=== PATIENT | female | born 1950 | race Caucasian/White ===

== ENCOUNTER 2017-04-05 19:05 | Inpatient (IN) | payer MEDICARE ==
[~2017-04-05 19:05] MED LIST: ALBUTEROL2.5 MG/3 M INH; ASPIRIN EC81 MG PO; AZILECT1 M1 PO; CARBIDOPA-LEVO E1 EA PO; CARBIDOPA-LEVO1 EA17 PO; CLONAZEPAM0.5 M2 PO; COMTAN200 M1 PO; CYCLOBENZAPRINE10 M1 PO; DEPAKOTE ER250 M1 PO; DEPAKOTE ER500 M1 PO; DULCOLAX10 MG PR; ELIQUIS2.5 M1 PO; ELIQUIS5 M1 PO; FEOSOL325 M1 PO; FLONASE ALLERG9.9 ML; GEODON40 M1 PO; KLONOPIN0.5 M1 PO; LEVOTHYROXINE150 MC3 PO; LEXAPRO10 M2 PO; LISINOPRIL20 M1 PO; METOPROLOL TART25 M1 PO; NEURONTIN300 M1 PO; NORCO 5-325 TA1 EACH PO; NYSTATIN1 EAC2 TOP; OMEPRAZOLE20 M3 PO; OXYBUTYNIN CHLO15 M1 PO; OXYCODONE HCL5 M1 PO; PROAIR HFA8.5 GM PO; SENNA PLUS TAB1 EAC1 PO; SYMBICORT 160-1 PUFF INH; TYLENOL325 M2 PO; ULTRAM50 M1 PO; VESICARE5 M1 PO; VITAMIN D250000 UNI1 PO; [UNRECOGNIZED DRUG - REMARK] PO
[2017-04-05 20:09] LABS: URINE BILIRUBIN NEGATIVE (NEG); URINE BLOOD SMALL (NEG); URINE GLUCOSE (UA) NEGATIVE (NEG); URINE KETONE SMALL (NEG); URINE LEUKOCYTE ESTERASE POSITIVE (NEG); URINE NITRITE NEGATIVE (NEG); URINE PROTEIN NEGATIVE (NEG); URINE SPECIFIC GRAVITY 1.015 (1.003-1.030)
[2017-04-05 20:10] LABS: URINE APPEARANCE CLEAR; URINE COLOR YELLOW
[2017-04-05 20:19] LABS: URINE BACTERIA 1+; URINE MUCUS 1+
[2017-04-05 20:38] LABS: ABG CO2 ARTERIAL 28 mmol/L (21-27); ARTERIAL BLD GAS O2 SATURATION 97 % (95-98); ARTERIAL BLOOD GAS PCO2 44 mmHg (32-45); ARTERIAL PO2 96 mmHg (70-100); BICARBONATE 27 mmol/L (21-28); BLOOD GAS BASE EXCESS 2 mM/L (-/+3)
[2017-04-05 20:42] LABS: BASO % 0.2 % (0-2); EOSINOPHIL ABSOLUTE COUNT 0.1 tho/cmm (0.0-0.7); HCT-HEMATOCRIT 33.9 % (34.0-49.0); HGB-HEMOGLOBIN 11.2 gm/dl (12.0-15.5); LYMPH % 40.4 % (20-45); LYMPH ABSOLUTE COUNT 2.4 tho/cmm (0.8-4.5); MCH (MEAN CORPUSCULAR HGB) 32.6 pg (28.0-32.0); MCV (MEAN CELL VOLUME) 98.5 fl (82.0-96.0); MEAN PLATELET VOLUME 12.6 cmc (9.4-12.4); MONO % 13.5 % (0-12); MONOCYTE ABSOLUTE COUNT 0.8 tho/cmm (0.0-1.2); NEUTROPHIL ABSOLUTE COUNT 2.6 tho/cmm (1.6-8.0); NEUTROPHIL-AUTOMATED 2.6 tho/cmm (1.6-8.0); NEUTROPHILS % 44.9 % (40-80); PLATELET COUNT 99 tho/cmm (150-450); RED BLOOD COUNT 3.44 mil/cmm (4.00-5.20); RED CELL DISTRIBUTION WIDTH 14.1 % (12.4-16.4); WHITE BLOOD COUNT 5.9 tho/cmm (4.0-10.0)
[2017-04-05 20:58] LABS: ALB/GLOB RATIO 0.8 (0.8-2.0); ALBUMIN 3.1 g/dl (3.5-5.0); ALKALINE PHOSPHATASE 90 U/L (33-138); ALT/SGPT 10 U/L (12-78); ANION GAP 13 mmol/L (0-20); AST/SGOT 17 U/L (10-40); BILIRUBIN,TOTAL 0.4 mg/dl (0-1.5); BLOOD UREA NITROGEN 31 mg/dl (6-24); CALCIUM 9.3 mg/dl (8.5-10.5); CARBON DIOXIDE-VENOUS 28 mmol/L (22-32); CHLORIDE 103 mmol/l (96-110); CREATININE 1.51 mg/dl (0.50-1.10); GLUCOSE 91 mg/dL (70-110); POTASSIUM 4.8 mmol/L (3.7-5.1); SODIUM 139 mmol/L (135-145); eGFR VALUE FOR BLACK 41 mL/Min
[2017-04-06 05:55] LABS: BASO % 0.2 % (0-2); EOS % 1.7 % (0-7); EOSINOPHIL ABSOLUTE COUNT 0.1 tho/cmm (0.0-0.7); HCT-HEMATOCRIT 30.1 % (34.0-49.0); LYMPH % 50.8 % (20-45); LYMPH ABSOLUTE COUNT 2.9 tho/cmm (0.8-4.5); MCH (MEAN CORPUSCULAR HGB) 32.8 pg (28.0-32.0); MCHC MEAN CORPUSCULAR HGB CONC 33.2 % (32.0-36.0); MCV (MEAN CELL VOLUME) 98.7 fl (82.0-96.0); MEAN PLATELET VOLUME 12.9 cmc (9.4-12.4); MONOCYTE ABSOLUTE COUNT 0.7 tho/cmm (0.0-1.2); NEUTROPHILS % 35.3 % (40-80); PLATELET COUNT 87 tho/cmm (150-450); RED BLOOD COUNT 3.05 mil/cmm (4.00-5.20); RED CELL DISTRIBUTION WIDTH 14.3 % (12.4-16.4); WHITE BLOOD COUNT 5.8 tho/cmm (4.0-10.0)
[2017-04-06 06:12] LABS: BLOOD UREA NITROGEN 30 mg/dl (6-24); CALCIUM 8.9 mg/dl (8.5-10.5); CARBON DIOXIDE-VENOUS 30 mmol/L (22-32); CHLORIDE 108 mmol/l (96-110); CREATININE 1.48 mg/dl (0.50-1.10); GLUCOSE 88 mg/dL (70-110); SODIUM 144 mmol/L (135-145); eGFR VALUE FOR BLACK 42 mL/Min
[2017-04-06 06:15] LABS: TSH-THYROID STIMULATING HORM. 0.22 uIU/ml (0.40-3.80)
[2017-04-06 06:20] LABS: ANION GAP 10 mmol/L (0-20); C-REACTIVE PROTEIN <0.3 mg/dl (0-0.9)
[2017-04-06] MEDS ORDERED: VOLTAREN100 G1 TOP (09:50)
[2017-04-06] MEDS ORDERED: ULTRAM50 M1 PO (09:51)
[2017-04-06] MEDS ORDERED: BREO ELLIPTA 11 EAC1 INH (09:51)
[2017-04-06] MEDS ORDERED: METHYLPHENIDATE10 M3 PO (09:52)
[2017-04-07 05:48] LABS: BASO % 0.2 % (0-2); EOS % 1.6 % (0-7); EOSINOPHIL ABSOLUTE COUNT 0.1 tho/cmm (0.0-0.7); HCT-HEMATOCRIT 30.9 % (34.0-49.0); HGB-HEMOGLOBIN 10.1 gm/dl (12.0-15.5); LYMPH % 62.7 % (20-45); LYMPH ABSOLUTE COUNT 3.1 tho/cmm (0.8-4.5); MCH (MEAN CORPUSCULAR HGB) 32.5 pg (28.0-32.0); MCHC MEAN CORPUSCULAR HGB CONC 32.7 % (32.0-36.0); MCV (MEAN CELL VOLUME) 99.4 fl (82.0-96.0); MEAN PLATELET VOLUME 12.7 cmc (9.4-12.4); MONO % 10.5 % (0-12); MONOCYTE ABSOLUTE COUNT 0.5 tho/cmm (0.0-1.2); NEUTROPHIL ABSOLUTE COUNT 1.2 tho/cmm (1.6-8.0); NEUTROPHIL-AUTOMATED 1.2 tho/cmm (1.6-8.0); PLATELET COUNT 88 tho/cmm (150-450); RED BLOOD COUNT 3.11 mil/cmm (4.00-5.20); RED CELL DISTRIBUTION WIDTH 14.2 % (12.4-16.4); WHITE BLOOD COUNT 4.9 tho/cmm (4.0-10.0)
[2017-04-07 06:00] LABS: BLOOD UREA NITROGEN 23 mg/dl (6-24); CALCIUM 9.1 mg/dl (8.5-10.5); CARBON DIOXIDE-VENOUS 28 mmol/L (22-32); CHLORIDE 106 mmol/l (96-110); CREATININE 1.33 mg/dl (0.50-1.10); GLUCOSE 80 mg/dL (70-110); SODIUM 142 mmol/L (135-145); eGFR VALUE FOR BLACK 48 mL/Min
[2017-04-07 06:06] LABS: ANION GAP 12 mmol/L (0-20); POTASSIUM 4.4 mmol/L (3.7-5.1)
[2017-04-08 08:53] LABS: BASO % 0.1 % (0-2); HCT-HEMATOCRIT 33.7 % (34.0-49.0); HGB-HEMOGLOBIN 11.3 gm/dl (12.0-15.5); IMMATURE GRANULOCYTES ABSOLUTE 0.01 tho/cmm (0-0.03); IMMATURE GRANULOCYTES PERCENT 0.1 % (0-0.3); LYMPH % 58.6 % (20-45); MCHC MEAN CORPUSCULAR HGB CONC 33.5 % (32.0-36.0); MCV (MEAN CELL VOLUME) 98.5 fl (82.0-96.0); MEAN PLATELET VOLUME 12.5 cmc (9.4-12.4); MONO % 10.4 % (0-12); NEUTROPHIL ABSOLUTE COUNT 2.8 tho/cmm (1.6-8.0); NEUTROPHIL-AUTOMATED 2.8 tho/cmm (1.6-8.0); NEUTROPHILS % 29.8 % (40-80); PLATELET COUNT 99 tho/cmm (150-450); RED BLOOD COUNT 3.42 mil/cmm (4.00-5.20); RED CELL DISTRIBUTION WIDTH 14.2 % (12.4-16.4)
[2017-04-08 08:54] LABS: EOSINOPHIL ABSOLUTE COUNT 0.1 tho/cmm (0.0-0.7); LYMPH ABSOLUTE COUNT 5.4 tho/cmm (0.8-4.5); WHITE BLOOD COUNT 9.3 tho/cmm (4.0-10.0)
[2017-04-08 08:54] LABS: ABG CO2 ARTERIAL 27 mmol/L (21-27); ARTERIAL BLD GAS O2 SATURATION 94 % (95-98); ARTERIAL BLOOD GAS PCO2 53 mmHg (32-45); ARTERIAL PO2 80 mmHg (70-100); BICARBONATE 25 mmol/L (21-28); BLOOD GAS BASE EXCESS -2 mM/L (-/+3)
[2017-04-08 09:08] LABS: ANION GAP 11 mmol/L (0-20); BLOOD UREA NITROGEN 15 mg/dl (6-24); CARBON DIOXIDE-VENOUS 28 mmol/L (22-32); CHLORIDE 109 mmol/l (96-110); GLUCOSE 98 mg/dL (70-110); MAGNESIUM 1.8 mg/dl (1.8-2.6); SODIUM 145 mmol/L (135-145); eGFR VALUE FOR BLACK 55 mL/Min
[2017-04-08 09:13] LABS: POTASSIUM 3.4 mmol/L (3.7-5.1)
[2017-04-08 12:43] LABS: INR 1.2 INR (0.9-1.1); PROTHROMBIN TIME 13.8 SECONDS (9.0-13.6)
[2017-04-08 13:10] LABS: PROCALCITONIN 0.05 ng/ml (0.05-0.09)
[2017-04-08 13:46] LABS: ABG CO2 ARTERIAL 29 mmol/L (21-27); ARTERIAL BLD GAS O2 SATURATION 97 % (95-98); ARTERIAL BLOOD GAS PCO2 52 mmHg (32-45); BICARBONATE 27 mmol/L (21-28); BLOOD GAS BASE EXCESS 1 mM/L (-/+3); PH 7.34 Units (7.35-7.45)
[2017-04-08 13:47] LABS: ARTERIAL PO2 95 mmHg (70-100)
[2017-04-08 17:13] LABS: ARTERIAL BLD GAS O2 SATURATION 99 % (95-98); BLOOD GAS BASE EXCESS -1 mM/L (-/+3)
[2017-04-08 17:14] LABS: ABG CO2 ARTERIAL 20 mmol/L (21-27); ARTERIAL BLOOD GAS PCO2 22 mmHg (32-45); ARTERIAL PO2 108 mmHg (70-100); BICARBONATE 20 mmol/L (21-28); PH 7.56 Units (7.35-7.45)
[2017-04-08 19:41] LABS: ABG CO2 ARTERIAL 22 mmol/L (21-27); ARTERIAL BLD GAS O2 SATURATION 99 % (95-98); ARTERIAL BLOOD GAS PCO2 33 mmHg (32-45); ARTERIAL PO2 143 mmHg (70-100); BICARBONATE 21 mmol/L (21-28); BLOOD GAS BASE EXCESS -3 mM/L (-/+3); PH 7.41 Units (7.35-7.45)
[2017-04-09 03:56] LABS: HCT-HEMATOCRIT 32.7 % (34.0-49.0); HGB-HEMOGLOBIN 10.7 gm/dl (12.0-15.5); IMMATURE GRANULOCYTES ABSOLUTE 0.01 tho/cmm (0-0.03); IMMATURE GRANULOCYTES PERCENT 0.1 % (0-0.3); LYMPH % 11.7 % (20-45); LYMPH ABSOLUTE COUNT 1.3 tho/cmm (0.8-4.5); MCH (MEAN CORPUSCULAR HGB) 32.6 pg (28.0-32.0); MCHC MEAN CORPUSCULAR HGB CONC 32.7 % (32.0-36.0); MCV (MEAN CELL VOLUME) 99.7 fl (82.0-96.0); MEAN PLATELET VOLUME 12.8 cmc (9.4-12.4); MONO % 2.5 % (0-12); MONOCYTE ABSOLUTE COUNT 0.3 tho/cmm (0.0-1.2); NEUTROPHIL ABSOLUTE COUNT 9.6 tho/cmm (1.6-8.0); NEUTROPHIL-AUTOMATED 9.6 tho/cmm (1.6-8.0); NEUTROPHILS % 85.7 % (40-80); PLATELET COUNT 103 tho/cmm (150-450); RED BLOOD COUNT 3.28 mil/cmm (4.00-5.20); RED CELL DISTRIBUTION WIDTH 14.6 % (12.4-16.4); WHITE BLOOD COUNT 11.2 tho/cmm (4.0-10.0)
[2017-04-09 04:12] LABS: BLOOD UREA NITROGEN 21 mg/dl (6-24); CALCIUM 8.9 mg/dl (8.5-10.5); CARBON DIOXIDE-VENOUS 28 mmol/L (22-32); CHLORIDE 105 mmol/l (96-110); CREATININE 1.22 mg/dl (0.50-1.10); GLUCOSE 126 mg/dL (70-110); SODIUM 141 mmol/L (135-145); eGFR VALUE FOR BLACK 53 mL/Min
[2017-04-09 05:17] LABS: ANION GAP 13 mmol/L (0-20); MAGNESIUM 1.8 mg/dl (1.8-2.6); POTASSIUM 4.6 mmol/L (3.7-5.1)
[2017-04-09 05:37] LABS: ARTERIAL BLD GAS O2 SATURATION 99 % (95-98); BLOOD GAS BASE EXCESS 4 mM/L (-/+3); PH 7.44 Units (7.35-7.45)
[2017-04-09 05:38] LABS: ABG CO2 ARTERIAL 29 mmol/L (21-27); ARTERIAL BLOOD GAS PCO2 41 mmHg (32-45); ARTERIAL PO2 110 mmHg (70-100); BICARBONATE 27 mmol/L (21-28)
[2017-04-10 04:15] LABS: HGB-HEMOGLOBIN 10.3 gm/dl (12.0-15.5); IMMATURE GRANULOCYTES ABSOLUTE 0.05 tho/cmm (0-0.03); IMMATURE GRANULOCYTES PERCENT 0.3 % (0-0.3); LYMPH % 13.7 % (20-45); MCH (MEAN CORPUSCULAR HGB) 32.5 pg (28.0-32.0); MCHC MEAN CORPUSCULAR HGB CONC 32.2 % (32.0-36.0); MCV (MEAN CELL VOLUME) 100.9 fl (82.0-96.0); MEAN PLATELET VOLUME 12.8 cmc (9.4-12.4); MONO % 3.8 % (0-12); MONOCYTE ABSOLUTE COUNT 0.5 tho/cmm (0.0-1.2); NEUTROPHIL ABSOLUTE COUNT 11.8 tho/cmm (1.6-8.0); NEUTROPHIL-AUTOMATED 11.8 tho/cmm (1.6-8.0); NEUTROPHILS % 82.2 % (40-80); PLATELET COUNT 92 tho/cmm (150-450); RED BLOOD COUNT 3.17 mil/cmm (4.00-5.20); RED CELL DISTRIBUTION WIDTH 14.8 % (12.4-16.4); WHITE BLOOD COUNT 14.4 tho/cmm (4.0-10.0)
[2017-04-10 04:26] LABS: ANION GAP 13 mmol/L (0-20); BLOOD UREA NITROGEN 31 mg/dl (6-24); CALCIUM 9.2 mg/dl (8.5-10.5); CARBON DIOXIDE-VENOUS 29 mmol/L (22-32); CHLORIDE 104 mmol/l (96-110); CREATININE 1.32 mg/dl (0.50-1.10); GLUCOSE 112 mg/dL (70-110); MAGNESIUM 2.1 mg/dl (1.8-2.6); POTASSIUM 4.5 mmol/L (3.7-5.1); SODIUM 141 mmol/L (135-145); eGFR VALUE FOR BLACK 49 mL/Min
--- NOTE | 2017-04-10 19:18 | NUR ---
VIRTUAL CARE NOTE: ASSESSMENT DEFERRED. PT. SLEEPING.
[2017-04-11 05:15] LABS: HCT-HEMATOCRIT 30.6 % (34.0-49.0); HGB-HEMOGLOBIN 10.1 gm/dl (12.0-15.5); IMMATURE GRANULOCYTES ABSOLUTE 0.06 tho/cmm (0-0.03); IMMATURE GRANULOCYTES PERCENT 0.6 % (0-0.3); LYMPH % 22.5 % (20-45); LYMPH ABSOLUTE COUNT 2.4 tho/cmm (0.8-4.5); MCH (MEAN CORPUSCULAR HGB) 32.9 pg (28.0-32.0); MCV (MEAN CELL VOLUME) 99.7 fl (82.0-96.0); MEAN PLATELET VOLUME 12.5 cmc (9.4-12.4); MONO % 4.1 % (0-12); MONOCYTE ABSOLUTE COUNT 0.4 tho/cmm (0.0-1.2); NEUTROPHIL ABSOLUTE COUNT 7.7 tho/cmm (1.6-8.0); NEUTROPHIL-AUTOMATED 7.7 tho/cmm (1.6-8.0); NEUTROPHILS % 72.8 % (40-80); PLATELET COUNT 83 tho/cmm (150-450); RED BLOOD COUNT 3.07 mil/cmm (4.00-5.20); RED CELL DISTRIBUTION WIDTH 14.8 % (12.4-16.4); WHITE BLOOD COUNT 10.5 tho/cmm (4.0-10.0)
[2017-04-11 05:32] LABS: ANION GAP 9 mmol/L (0-20); BLOOD UREA NITROGEN 27 mg/dl (6-24); CALCIUM 9.2 mg/dl (8.5-10.5); CARBON DIOXIDE-VENOUS 32 mmol/L (22-32); CHLORIDE 104 mmol/l (96-110); CREATININE 1.17 mg/dl (0.50-1.10); GLUCOSE 111 mg/dL (70-110); MAGNESIUM 2.1 mg/dl (1.8-2.6); POTASSIUM 4.7 mmol/L (3.7-5.1); SODIUM 140 mmol/L (135-145); eGFR VALUE FOR BLACK 56 mL/Min
--- NOTE | 2017-04-11 16:58 | NUR ---
VIRTUAL CARE NOTE: PT SITTING ON CHAIR, STATES DOING GOOD TODAY, DC PLAN FOR HOME TOMORROW. PT DENIES ANY NEEDS OR CONCERNS AT THIS TIME.
--- NOTE | 2017-04-12 14:34 | NUR ---
VIRTUAL CARE NOTE: PT SITTING ON CHAIR, STATES DOING GOOD, NO NEEDS OR CONCERNS AT THIS TIME.
[2017-04-13 05:28] LABS: BASO % 0.1 % (0-2); EOS % 2.8 % (0-7); EOSINOPHIL ABSOLUTE COUNT 0.2 tho/cmm (0.0-0.7); HGB-HEMOGLOBIN 10.7 gm/dl (12.0-15.5); IMMATURE GRANULOCYTES ABSOLUTE 0.02 tho/cmm (0-0.03); IMMATURE GRANULOCYTES PERCENT 0.3 % (0-0.3); LYMPH % 56.6 % (20-45); LYMPH ABSOLUTE COUNT 4.4 tho/cmm (0.8-4.5); MCH (MEAN CORPUSCULAR HGB) 32.6 pg (28.0-32.0); MCHC MEAN CORPUSCULAR HGB CONC 32.4 % (32.0-36.0); MCV (MEAN CELL VOLUME) 100.6 fl (82.0-96.0); MEAN PLATELET VOLUME 11.9 cmc (9.4-12.4); MONO % 10.3 % (0-12); MONOCYTE ABSOLUTE COUNT 0.8 tho/cmm (0.0-1.2); NEUTROPHIL ABSOLUTE COUNT 2.3 tho/cmm (1.6-8.0); NEUTROPHIL-AUTOMATED 2.3 tho/cmm (1.6-8.0); NEUTROPHILS % 29.9 % (40-80); PLATELET COUNT 93 tho/cmm (150-450); RED BLOOD COUNT 3.28 mil/cmm (4.00-5.20); WHITE BLOOD COUNT 7.8 tho/cmm (4.0-10.0)
[2017-04-13 05:40] LABS: ANION GAP 12 mmol/L (0-20); BLOOD UREA NITROGEN 21 mg/dl (6-24); CARBON DIOXIDE-VENOUS 30 mmol/L (22-32); CHLORIDE 105 mmol/l (96-110); CREATININE 1.37 mg/dl (0.50-1.10); GLUCOSE 75 mg/dL (70-110); SODIUM 143 mmol/L (135-145); eGFR VALUE FOR BLACK 46 mL/Min
--- NOTE | 2017-04-13 20:46 | NUR ---
SADI LYNCH-VISITED WITH PATIENT SHE WAS GETTING BACK IN BED. STATES PAIN IS CONTROLLED AND WE REVIEWED HER GETTING A SWALLOW STUDY IN THE MORNING AND POSSIBLE DC TOMORROW SOMETIME. SHE SAID SHE JUST WANTS TO KNOW WHAT SHE NEEDS TO DO. I EXPLAINED THE PERSON DOING THE SWALLOW STUDY WILL REVIEW WITH HER SOME TIPS TO HELP WITH HER SWALLOWING AND I ALSO REMINDED PATIENT TO COUGH AND DEEP BREATH AND TO CALL FOR HELP WHEN SHE NEEDS TO GET UP TONIGHT. NO FURTHER QUESTIONS OR CONCERNS FROM THE PATIENT
--- NOTE | 2017-04-15 14:18 | NUR ---
VIRTUAL CARE NOTE: PT SITTING ON CHAIR, ALERT AND AWAKE, STATES DOING VERY GOOD TODAY. PT REPORTS EATHING GOOD DENIES ANY ISSUES WITH SWALLOWING. PLAN OF DISCHARGE DISCUSSED WITH PT, DENIES ANY NEEDS OR CONCERNS.
--- NOTE | 2017-04-15 22:32 | NUR ---
VIRTUAL CARE NOTE: ASSESSMENT DEFERRED. PT. SLEEPING.
== END 2017-04-16 12:35 | DRG 682 ==
LOC: EDMED 19:05 → EMR2 23:46 → 5WE 04-06 01:15 → CCU 04-08 09:46 → 5WD 04-10 16:10
PROVIDERS: Emergency Medicine; Internal Medicine; Internal Medicine Gastroenterology; Internal Medicine Pulmonary Disease; Registered Nurse; ADMIT Hospitalist
PROC: 0DC58ZZ Extirpation of Matter from Esophagus, Via Natural or Artificial Opening Endoscopic (ICD-10-PCS; principal; 2017-04-08)
PROC: 03HY32Z Insertion of Monitoring Device into Upper Artery, Percutaneous Approach (ICD-10-PCS; 2017-04-08)
PROC: 0D9670Z Drainage of Stomach with Drainage Device, Via Natural or Artificial Opening (ICD-10-PCS; 2017-04-08)
PROC: 0BH17EZ Insertion of Endotracheal Airway into Trachea, Via Natural or Artificial Opening (ICD-10-PCS; 2017-04-08)
PROC: 5A1935Z Respiratory Ventilation, Less than 24 Consecutive Hours (ICD-10-PCS; 2017-04-08)
PROC: 02HV33Z Insertion of Infusion Device into Superior Vena Cava, Percutaneous Approach (ICD-10-PCS; 2017-04-08)
DX: N17.9 Acute kidney failure, unspecified (principal); J69.0 Pneumonitis due to inhalation of food and vomit; J96.01 Acute respiratory failure with hypoxia; D69.6 Thrombocytopenia, unspecified; J96.02 Acute respiratory failure with hypercapnia; G20 Parkinson's disease; I13.0 Hypertensive heart and chronic kidney disease with heart failure and stage 1 through stage 4 chronic kidney disease, or unspecified chronic kidney disease; I50.32 Chronic diastolic (congestive) heart failure; K22.2 Esophageal obstruction; I48.91 Unspecified atrial fibrillation; E86.0 Dehydration; N39.0 Urinary tract infection, site not specified; N18.3 Chronic kidney disease, stage 3 (moderate); E03.9 Hypothyroidism, unspecified; Z79.01 Long term (current) use of anticoagulants; Z79.82 Long term (current) use of aspirin; Z95.0 Presence of cardiac pacemaker; Z86.73 Personal history of transient ischemic attack (TIA), and cerebral infarction without residual deficits; Z86.718 Personal history of other venous thrombosis and embolism; F20.9 Schizophrenia, unspecified; F31.9 Bipolar disorder, unspecified; F41.9 Anxiety disorder, unspecified; I87.2 Venous insufficiency (chronic) (peripheral); D63.8 Anemia in other chronic diseases classified elsewhere; Z79.51 Long term (current) use of inhaled steroids; K21.9 Gastro-esophageal reflux disease without esophagitis; Z88.0 Allergy status to penicillin; Z88.2 Allergy status to sulfonamides; Z91.041 Radiographic dye allergy status; Z88.8 Allergy status to other drugs, medicaments and biological substances; Z88.5 Allergy status to narcotic agent; Z91.040 Latex allergy status; Z91.013 Allergy to seafood; Z87.891 Personal history of nicotine dependence; I95.1 Orthostatic hypotension
CPT/HCPCS: A9540; A9558; C1751; C9113; J0696; J1956; J2060; J2405; J2543; J2920; J2930; J7030; J7040; J7050